=== PATIENT | male | born 1980 | race Caucasian/White ===

== ENCOUNTER 2021-02-27 08:31 | Emergency (ER) | payer BC ==
[2021-02-27 08:50] VITALS: BP 131/78; PULSE 57; RESP 18
[2021-02-27 08:57] VITALS: TEMP 98.3
[2021-02-27] MEDS ORDERED: ceFAZolin 1,000 MG VIAL (IM USE) IM STA (09:08)
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
== END 2021-02-27 09:29 | disposition home or self-care (01) ==
LOC: EC 08:31
DX: L08.9 Local infection of the skin and subcutaneous tissue, unspecified (principal)
CPT/HCPCS: 87070; 87205; 99282; 96372; J0690; 87077; 87186